=== PATIENT | female | born 1985 | race American Indian/Alaskan Native ===

== ENCOUNTER 2019-07-20 16:59 | Inpatient (IN) | payer MEDICAID ==
[2019-07-20] MEDS ORDERED: LACTATED RINGERS 1,000 ML IV SCH (18:00)
[2019-07-20] MEDS ORDERED: ACETAMINOPHEN 325 MG TAB PO PRN (19:03)
[2019-07-20] MEDS ORDERED: DOCUSATE SODIUM 100 MG CAP PO PRN (19:03)
[2019-07-20] MEDS ORDERED: ONDANSETRON 4 MG/2 ML INJ IV PRN (19:03)
[2019-07-20] MEDS ORDERED: diphenhydrAMINE 25 MG CAP PO PRN (19:03)
[2019-07-20] MEDS ORDERED: SODIUM CHLORIDE NASAL SPRAY 44ML NS PRN (19:03)
[2019-07-20] MEDS ORDERED: SIMETHICONE 80 MG CHEW TAB PO PRN (19:03)
--- NOTE | 2019-07-20 19:15 | History and Physical Report ---
History of Present Illness Date of examination: 07/20/19 Chief complaint: sent from [facility] for evaluation History of present illness: Pt is a 33 year old -[place] female primigravida JUANPABLO 08/18/19 at 35w6d presents from [facility] office for further evaluation of blood pressures 140-150s/80s. She denies headache, blurry vision or RUQ pain. She has had care at [facility] since 12 wks with comanagement by [facility] secondary to morbid obesity, alpha thalassemia carrier status, glucose intolerance, genital herpes without lesion or prodrome, IUGR, low normal CHERELLE. Her GBS status is unknown. Per Dr Bello at [facility] pt had a BPP today that was 8/8 and CHERELLE 7.0 cm. 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 Family/Genetic History: heart disease, hypertension Social history: no significant social history - Obstetrical History Expected Date of Delivery: 08/18/19 Actual Gestation: 35 Week(s) 6 Day(s) : 1 Medications and Allergies Allergies Allergy/AdvReac Type Severity Reaction Status Date / Time No Known Allergies Allergy Verified 07/20/19 17:44 Home Medications Medication Instructions Recorded Confirmed Last Taken Type No Known Home Medications [No 07/20/19 07/20/19 Unknown History Reported Home Medications] Active Meds: Active Medications Acetaminophen (Tylenol) 650 mg PO Q4H PRN PRN Reason: Pain MILD(1-3)/Fever >100.5/HERRERA Betamethasone Acet/Betameth SodPhos (Celestone Soluspan) 12 mg IM Q24HR TAMIA Stop: 07/21/19 10:01 Diphenhydramine HCl (Benadryl) 25 mg PO Q6H PRN PRN Reason: Itching Docusate Sodium (Colace) 100 mg PO Q12H PRN PRN Reason: Constipation Hydralazine HCl (Apresoline) 5 mg IV Q30MIN PRN PRN Reason: Hypertension Lactated Ringer's (Lactated Ringers) 1,000 mls @ 125 mls/hr IV DIRECT TAMIA Last Admin: 07/20/19 18:25 Dose: 125 mls/hr Documented by: Lactated Ringer's (Lactated Ringers) 1,000 mls @ 125 mls/hr IV DIRECT TAMIA Multivitamins/Iron/Calcium ( Vitamin) 1 each PO QDAY TAMIA Ondansetron HCl (Zofran) 4 mg IV Q6H PRN PRN Reason: Nausea And Vomiting Simethicone (Mylicon) 80 mg PO Q6H PRN PRN Reason: Gas pain Sodium Chloride (Deep Sea) 2 spray NS Q4H PRN PRN Reason: Congestion Review of Systems All systems: negative - Vital Signs Vital signs: Vital Signs Temp Pulse Resp BP 98.3 F 90 16 138/75 07/20/19 17:42 07/20/19 17:42 07/20/19 17:42 07/20/19 17:42 Temp Pulse Resp BP Pulse Ox 98.3 F 86 16 132/71 07/20/19 17:42 07/20/19 19:09 07/20/19 17:42 07/20/19 19:09 - Physical Exam Breasts: Positive: deferred Abdomen: Positive: soft (obese, gravid ) Uterus: Positive: enlarged (gravid ) - Obstetrical Uterine Contraction Monitor Mode: External Uterine Contraction Pattern: Absent Results All other labs normal. Assessment and Plan A: IUP at 35w6d Gestational Hypertension IUGR Low Normal CHERELLE Morbid Obesity Genital Herpes without lesion or prodrome Alpha thalassemia carrier status GBS unknown P: Admit to antepartum service Serial BPs 24 hr urine collection Betamethasone course Continuous monitoring Closely monitor clinically
[2019-07-20 19:38] LABS: Bilirubin,Urine NEG (Negative); Blood,Urine NEG (Negative); Color,Urine Yellow (Yellow); Mucus,Urine FEW /HPF; Urobilinogen,Urine < 2.0 mg/dL (<2.0)
[2019-07-20 19:39] LABS: Hematocrit 33.2 % (30.3-42.9); Hemoglobin 10.5 gm/dl (10.1-14.3); Mean Corpuscular HGB Conc 32 % (30-34); Mean Corpuscular Volume 81 fl (79-97); Platelet Count 294 K/mm3 (140-440); Red Blood Count 4.09 M/mm3 (3.65-5.03); Red Cell Distribution Width 15.6 % (13.2-15.2)
[2019-07-20 19:58] LABS: Alanine Aminotransferase 10 units/L (7-56)
[2019-07-20 20:27] LABS: Uric Acid 7.5 mg/dL (3.5-7.6)
[2019-07-20] MEDS ORDERED: guaiFENesin 200 MG TAB PO PRN (21:24)
[2019-07-20] MEDS: LACTATED RINGERS 1,000 ML IV SCH (22:17)
[2019-07-20] MEDS: BETAMET ACET/BETAMET NA PH 6 MG/ML INJ 5 ML MDV IM SCH (22:18)
--- NOTE | 2019-07-21 04:10 | Progress Note ---
Assessment and Plan A: IUP at 36w0d Gestational Hypertension IUGR Low Normal CHERELLE Morbid Obesity Genital Herpes without lesion or prodrome; on Vatrex suppression Alpha thalassemia carrier status GBS unknown P: Admit to antepartum service Serial BPs 24 hr urine collection Betamethasone course; s/p 1 dose of betamethasone Continuous monitoring Closely monitor clinically Subjective - Subjective Date of service: 07/21/19 Principal diagnosis: s/p 36 wks, IUGR, Morbid Obesity, Gestational HTN Interval history: Pt without complaints Patient reports: no new complaints, no loss of fluid, no vaginal bleeding, no contractions Objective - Vital Signs Vital Signs: Vital Signs - 12hr 07/20/19 07/20/19 07/20/19 17:42 18:38 18:55 Temperature 98.3 F Pulse Rate 90 89 92 H Respiratory 16 Rate Blood Pressure 137/71 138/67 Blood Pressure 138/75 [Left] O2 Sat by Pulse Oximetry 07/20/19 07/20/19 07/20/19 19:09 19:23 19:38 Temperature Pulse Rate 86 90 91 H Respiratory Rate Blood Pressure 132/71 129/73 130/71 Blood Pressure [Left] O2 Sat by Pulse Oximetry 07/20/19 07/20/19 07/20/19 19:53 20:08 20:23 Temperature Pulse Rate 88 89 97 H Respiratory Rate Blood Pressure 140/76 137/68 135/80 Blood Pressure [Left] O2 Sat by Pulse Oximetry 07/20/19 07/20/19 07/20/19 20:39 20:54 22:15 Temperature Pulse Rate 120 H 117 H 87 Respiratory Rate Blood Pressure 152/80 152/81 131/75 Blood Pressure [Left] O2 Sat by Pulse Oximetry 07/21/19 07/21/19 07/21/19 00:58 03:32 03:37 Temperature Pulse Rate 85 89 88 Respiratory Rate Blood Pressure 129/75 Blood Pressure [Left] O2 Sat by Pulse 97 97 Oximetry 07/21/19 07/21/19 07/21/19 03:42 03:47 03:52 Temperature Pulse Rate 79 92 H 89 Respiratory Rate Blood Pressure Blood Pressure [Left] O2 Sat by Pulse 98 99 99 Oximetry 07/21/19 03:57 Temperature Pulse Rate 99 H Respiratory Rate Blood Pressure Blood Pressure [Left] O2 Sat by Pulse 98 Oximetry - Exam Breasts: deferred Abdomen: Present: soft (gravid, morbid ) Uterus: Present: normal (gravid ) FHR: auscultation normal Uterine Contraction Monitor Mode: External Uterine Contraction Pattern: Absent Uterine Tone Measurement Phase: Resting Extremities: edema (trace ) - Labs Labs: Abnormal Labs 07/20/19 07/20/19 18:36 Unknown MCH 26 L RDW 15.6 H U Epithel Cells (Auto) 14.0 H Laboratory Results - last 24 hr 07/20/19 07/20/19 07/20/19 18:36 18:36 18:43 WBC 7.2 RBC 4.09 Hgb 10.5 Hct 33.2 MCV 81 MCH 26 L MCHC 32 RDW 15.6 H Plt Count 294 Creatinine 0.7 Estimated GFR > 60 Uric Acid 7.5 AST 17 ALT 10 Lactate Dehydrogenase 152 Urine Color Urine Turbidity Urine pH Ur Specific Clarence Urine Protein Urine Glucose (UA) Urine Ketones Urine Blood Urine Nitrite Urine Bilirubin Urine Urobilinogen Ur Leukocyte Esterase Urine WBC (Auto) Urine RBC (Auto) U Epithel Cells (Auto) Urine Mucus Blood Type AB POSITIVE Antibody Screen Negative 07/20/19 Unknown WBC RBC Hgb Hct MCV MCH MCHC RDW Plt Count Creatinine Estimated GFR Uric Acid AST ALT Lactate Dehydrogenase Urine Color Yellow Urine Turbidity Slightly-cloudy Urine pH 6.0 Ur Specific Clarence 1.026 Urine Protein 100 mg/dl Urine Glucose (UA) Neg Urine Ketones Neg Urine Blood Neg Urine Nitrite Neg Urine Bilirubin Neg Urine Urobilinogen < 2.0 Ur Leukocyte Esterase Tr Urine WBC (Auto) 4.0 Urine RBC (Auto) 1.0 U Epithel Cells (Auto) 14.0 H Urine Mucus Few Blood Type Antibody Screen
[2019-07-21] MEDS: valACYclovir 500 MG TAB PO SCH (10:49)
[2019-07-21] MEDS: PRENATAL VIT27-FE FUMARATE-FOLIC ACID VIT TAB PO SCH (10:49)
--- NOTE | 2019-07-21 14:02 | Ultrasound Report ---
ULTRASOUND OBSTETRIC LIMITED ULTRASOUND BIOPHYSICAL PROFILE INDICATION / CLINICAL INFORMATION: Evaluate well-being. COMPARISON: None available. FINDINGS: BREATHING MOVEMENT = 2 GROSS BODY MOVEMENT = 2 TONE = 2 QUALITATIVE AMNIOTIC FLUID VOLUME = 2 TOTAL BIOPHYSICAL SCORE = 8/8 AMNIOTIC FLUID INDEX (cm) = 9.6 PRESENTATION: Cephalic. HEART RATE (beats per minute): 140 ADDITIONAL FINDINGS: None. IMPRESSION: 1. Biophysical Score = 8/8 2. Normal amniotic fluid index of 9.6 cm. Signer Name: Sumit Shetty MD Signed: 07/21/2019 1:57 PM Workstation Name: [id number]
--- NOTE | 2019-07-21 17:28 | Ultrasound Report ---
ULTRASOUND OBSTETRIC LIMITED ULTRASOUND BIOPHYSICAL PROFILE INDICATION / CLINICAL INFORMATION: Doppler evaluation of umbilical cord. COMPARISON: Limited OB ultrasound from earlier today. FINDINGS: A single live intrauterine is seen with a heart rate of 148 bpm. [facility] 33 weeks, 1 day. The average systolic/diastolic ratio of the umbilical cord is 2.0 with a normal waveform and a persis tent diastolic flow pattern. The average resistive index is 1.1 with a normal waveform and persistent diastolic pattern. IMPRESSION: Unremarkable umbilical cord Doppler. Signer Name: Sumit Shetty MD Signed: 07/21/2019 5:24 PM Workstation Name: [id number]
--- NOTE | 2019-07-21 17:48 | Ultrasound Report ---
ULTRASOUND OBSTETRIC INDICATION: Evaluate well-being. Clinical Gestational Age (GA): 36 weeks TECHNIQUE: Transabdominal. COMPARISON: None available. FINDINGS: There is a single intrauterine . Biparietal Diameter = 7.9 cm = 31 weeks, 5 day(s). Head Circumference = 30.7 cm = 34 weeks, 1 day(s). Abdominal Circumference = 29.2 cm = 33 weeks, 1 day(s). Femur Length = 6.5 cm = 33 weeks, 3 day(s). Average Ultrasound Age (AUA) = 33 weeks, 1 day(s). Heart Rate: 156 beats per minute. Estimated Weight in grams (if calculated): 2142 Position: cephalic. Cervix: closed. Length in cm (if measured): Not measured. Placenta: Not well visualized. Amniotic Fluid Volume: normal Amniotic Fluid Index (CHERELLE) in cm (if calculated): Not calculated. Maternal Adnexa: No significant abnormality. IMPRESSION: 1. Single, living intrauterine with estimated sonographic age of 33 weeks, 1 day(s). 2. No significant sonographic abnormality. Signer Name: Sumit Shetty MD Signed: 07/21/2019 5:44 PM Workstation Name: [id number]
[2019-07-21 19:26] LABS: Creatinine,Urine 67.3 mg/dL (0.1-20.0); Protein/Creatinine Ratio,Urine 1.65
[2019-07-21] MEDS: BETAMET ACET/BETAMET NA PH 6 MG/ML INJ 5 ML MDV IM SCH (21:00)
--- NOTE | 2019-07-21 22:02 | Event Note ---
Date: 07/21/19 Late entry. On-call MD contacted by Dr Ruff from [facility] with recommendation for delivery 24 hrs after second dose of betamethasone if IUGR and greater than 300 mg of protein in 24 hr urine. 24 hr urine protein is 2442 mg. Plan to proceed with induction on 07/22/19 at 2100 pm.
[2019-07-21] MEDS: LACTATED RINGERS 1,000 ML IV SCH (22:04)
[2019-07-22] MEDS: LACTATED RINGERS 1,000 ML IV SCH ×3 (05:56→18:19)
--- NOTE | 2019-07-22 08:36 | Progress Note ---
Assessment and Plan A: IUP at 36w1d Gestational Hypertension IUGR Low Normal CHERELLE Morbid Obesity Genital Herpes without lesion or prodrome; on Vatrex suppression Alpha thalassemia carrier status GBS unknown P: IOL at 9p after 24hrs steroids per MFM Serial BPs s/p 2400 g protein Betamethasone course; s/p 2 doses at 2100 Continuous monitoring NICCU consult Closely monitor clinically Subjective - Subjective Date of service: 07/22/19 Principal diagnosis: s/p 36 wks, IUGR, Morbid Obesity, Gestational HTN Patient reports: no new complaints, no loss of fluid, no vaginal bleeding, no contractions Objective - Vital Signs Vital Signs: Vital Signs - 12hr 07/21/19 07/21/19 07/21/19 21:20 21:55 22:20 Temperature Pulse Rate 99 H 107 H 100 H Respiratory Rate Blood Pressure 173/85 143/88 151/60 Blood Pressure [Left] O2 Sat by Pulse Oximetry 07/21/19 07/22/19 07/22/19 23:20 00:00 00:21 Temperature 98.4 F Pulse Rate 100 H 100 H 96 H Respiratory 16 Rate Blood Pressure 141/78 134/92 Blood Pressure 141/78 [Left] O2 Sat by Pulse Oximetry 07/22/19 07/22/19 07/22/19 00:24 00:29 00:34 Temperature Pulse Rate 102 H 100 H 102 H Respiratory Rate Blood Pressure Blood Pressure [Left] O2 Sat by Pulse 97 99 98 Oximetry 07/22/19 07/22/19 07/22/19 00:39 00:44 00:49 Temperature Pulse Rate 99 H 97 H 99 H Respiratory Rate Blood Pressure Blood Pressure [Left] O2 Sat by Pulse 98 98 99 Oximetry 07/22/19 07/22/19 07/22/19 00:54 00:59 01:04 Temperature Pulse Rate 101 H 95 H 95 H Respiratory Rate Blood Pressure Blood Pressure [Left] O2 Sat by Pulse 98 98 97 Oximetry 07/22/19 07/22/19 07/22/19 01:09 01:14 01:19 Temperature Pulse Rate 95 H 95 H 96 H Respiratory Rate Blood Pressure Blood Pressure [Left] O2 Sat by Pulse 97 97 98 Oximetry 07/22/19 07/22/19 07/22/19 01:20 01:24 01:29 Temperature Pulse Rate 89 94 H 93 H Respiratory Rate Blood Pressure 141/85 Blood Pressure [Left] O2 Sat by Pulse 97 97 Oximetry 07/22/19 07/22/19 07/22/19 01:34 01:39 01:44 Temperature Pulse Rate 95 H 94 H 93 H Respiratory Rate Blood Pressure Blood Pressure [Left] O2 Sat by Pulse 96 97 96 Oximetry 07/22/19 07/22/19 07/22/19 01:49 01:54 01:59 Temperature Pulse Rate 104 H 87 95 H Respiratory Rate Blood Pressure Blood Pressure [Left] O2 Sat by Pulse 96 97 96 Oximetry 07/22/19 07/22/19 07/22/19 02:04 02:09 02:14 Temperature Pulse Rate 96 H 84 86 Respiratory Rate Blood Pressure Blood Pressure [Left] O2 Sat by Pulse 97 97 98 Oximetry 07/22/19 07/22/19 07/22/19 02:19 02:20 02:24 Temperature Pulse Rate 90 83 88 Respiratory Rate Blood Pressure 126/81 Blood Pressure [Left] O2 Sat by Pulse 96 97 Oximetry 07/22/19 07/22/19 07/22/19 02:29 02:34 02:39 Temperature Pulse Rate 90 74 90 Respiratory Rate Blood Pressure Blood Pressure [Left] O2 Sat by Pulse 95 98 95 Oximetry 07/22/19 07/22/19 07/22/19 02:44 02:49 02:51 Temperature Pulse Rate 73 82 93 H Respiratory Rate Blood Pressure Blood Pressure [Left] O2 Sat by Pulse 94 96 94 Oximetry 07/22/19 07/22/19 07/22/19 03:00 03:05 03:10 Temperature Pulse Rate 95 H 80 80 Respiratory Rate Blood Pressure Blood Pressure [Left] O2 Sat by Pulse 99 98 98 Oximetry 07/22/19 07/22/19 07/22/19 03:15 03:20 03:25 Temperature Pulse Rate 86 88 91 H Respiratory Rate Blood Pressure 172/93 Blood Pressure [Left] O2 Sat by Pulse 98 95 97 Oximetry 07/22/19 07/22/19 07/22/19 03:30 03:35 03:40 Temperature Pulse Rate 91 H 89 87 Respiratory Rate Blood Pressure Blood Pressure [Left] O2 Sat by Pulse 96 96 97 Oximetry 07/22/19 07/22/19 07/22/19 03:45 03:50 03:55 Temperature Pulse Rate 91 H 81 96 H Respiratory Rate Blood Pressure Blood Pressure [Left] O2 Sat by Pulse 96 96 97 Oximetry 07/22/19 07/22/19 07/22/19 04:00 04:05 04:10 Temperature 98.8 F Pulse Rate 87 86 83 Respiratory 18 Rate Blood Pressure Blood Pressure 150/80 [Left] O2 Sat by Pulse 96 97 96 Oximetry 07/22/19 07/22/19 07/22/19 04:12 04:15 04:20 Temperature Pulse Rate 96 H 98 H 93 H Respiratory Rate Blood Pressure Blood Pressure [Left] O2 Sat by Pulse 94 97 97 Oximetry 07/22/19 07/22/19 07/22/19 04:22 04:25 04:30 Temperature Pulse Rate 83 83 81 Respiratory Rate Blood Pressure 134/77 Blood Pressure [Left] O2 Sat by Pulse 98 100 Oximetry 07/22/19 07/22/19 07/22/19 04:35 04:40 04:45 Temperature Pulse Rate 87 82 88 Respiratory Rate Blood Pressure Blood Pressure [Left] O2 Sat by Pulse 100 100 100 Oximetry 07/22/19 07/22/19 07/22/19 04:50 04:55 05:00 Temperature Pulse Rate 87 90 86 Respiratory Rate Blood Pressure Blood Pressure [Left] O2 Sat by Pulse 100 100 100 Oximetry 07/22/19 07/22/19 07/22/19 05:05 05:10 05:15 Temperature Pulse Rate 91 H 94 H 75 Respiratory Rate Blood Pressure Blood Pressure [Left] O2 Sat by Pulse 100 99 100 Oximetry 07/22/19 07/22/19 07/22/19 05:20 05:25 05:30 Temperature Pulse Rate 82 75 81 Respiratory Rate Blood Pressure 131/88 Blood Pressure [Left] O2 Sat by Pulse 99 100 100 Oximetry 07/22/19 07/22/19 07/22/19 05:35 05:40 05:59 Temperature Pulse Rate 83 82 77 Respiratory Rate Blood Pressure Blood Pressure [Left] O2 Sat by Pulse 100 100 79 L Oximetry 07/22/19 07/22/19 07/22/19 06:04 06:09 06:14 Temperature Pulse Rate 78 78 73 Respiratory Rate Blood Pressure Blood Pressure [Left] O2 Sat by Pulse 100 100 100 Oximetry 07/22/19 07/22/19 07/22/19 06:19 06:20 06:24 Temperature Pulse Rate 77 77 81 Respiratory Rate Blood Pressure 153/74 Blood Pressure [Left] O2 Sat by Pulse 100 100 Oximetry 07/22/19 07/22/19 07/22/19 06:29 06:34 06:39 Temperature Pulse Rate 83 79 79 Respiratory Rate Blood Pressure Blood Pressure [Left] O2 Sat by Pulse 100 100 100 Oximetry 07/22/19 07/22/19 07/22/19 06:44 06:49 06:54 Temperature Pulse Rate 87 73 85 Respiratory Rate Blood Pressure Blood Pressure [Left] O2 Sat by Pulse 100 100 100 Oximetry 07/22/19 07/22/19 07/22/19 06:59 07:04 07:09 Temperature Pulse Rate 78 89 81 Respiratory Rate Blood Pressure Blood Pressure [Left] O2 Sat by Pulse 100 100 100 Oximetry 07/22/19 07/22/19 07/22/19 07:14 07:17 07:19 Temperature Pulse Rate 78 104 H 92 H Respiratory Rate Blood Pressure Blood Pressure [Left] O2 Sat by Pulse 100 82 L 89 Oximetry 07/22/19 07/22/19 07/22/19 07:20 07:24 07:29 Temperature Pulse Rate 85 84 92 H Respiratory Rate Blood Pressure 149/71 Blood Pressure [Left] O2 Sat by Pulse 100 100 Oximetry 07/22/19 07/22/19 07/22/19 07:34 07:39 07:44 Temperature Pulse Rate 83 90 90 Respiratory Rate Blood Pressure Blood Pressure [Left] O2 Sat by Pulse 100 100 97 Oximetry 07/22/19 07/22/19 07/22/19 07:46 07:49 07:54 Temperature 98.9 F Pulse Rate 85 88 Respiratory 14 Rate Blood Pressure Blood Pressure [Left] O2 Sat by Pulse 100 100 Oximetry 07/22/19 07/22/19 07/22/19 07:59 08:04 08:09 Temperature Pulse Rate 85 85 92 H Respiratory Rate Blood Pressure Blood Pressure [Left] O2 Sat by Pulse 100 100 100 Oximetry 07/22/19 07/22/19 07/22/19 08:10 08:14 08:19 Temperature Pulse Rate 105 H 97 H 94 H Respiratory Rate Blood Pressure Blood Pressure [Left] O2 Sat by Pulse 94 97 98 Oximetry 07/22/19 07/22/19 07/22/19 08:21 08:24 08:29 Temperature Pulse Rate 95 H 107 H 111 H Respiratory Rate Blood Pressure 185/88 Blood Pressure [Left] O2 Sat by Pulse 99 98 Oximetry 07/22/19 08:34 Temperature Pulse Rate 95 H Respiratory Rate Blood Pressure Blood Pressure [Left] O2 Sat by Pulse 98 Oximetry - Exam Breasts: deferred Cardiovascular: Regular rate, Normal S1 Lungs: Clear to auscultation, Normal air movement Abdomen: Present: normal appearance, soft, normal bowel sounds. Absent: dist ention, tenderness, guarding Vulva: both: normal Uterus: Present: normal, firm, fundal height above umbilicus. Absent: bogginess, tenderness FHR: category 1 Uterine Tone Measurement Phase: Resting Extremities: normal Deep Tendon Reflex Grade: Normal +2 - Labs Labs: Abnormal Labs 07/20/19 07/20/19 07/20/19 18:36 Unknown Unknown MCH 26 L RDW 15.6 H U Epithel Cells (Auto) 14.0 H Urine Creatinine 67.3 H Ur Total Protein 24 Hr 2442.00 H Urine Total Protein 111 H Laboratory Results - last 24 hr 07/20/19 Unknown Urine Total Volume 2200 Urine Creatinine 67.3 H Ur Total Protein 24 Hr 2442.00 H Protein/Creatinin Ratio 1.65 Urine Total Protein 111 H
[2019-07-22] MEDS: hydrALAZINE 20 MG/1 ML INJ IV PRN (09:02)
[2019-07-22] MEDS: valACYclovir 500 MG TAB PO SCH (09:56)
[2019-07-22] MEDS: PRENATAL VIT27-FE FUMARATE-FOLIC ACID VIT TAB PO SCH (09:56)
--- NOTE | 2019-07-22 16:50 | Consultation ---
Consult Note - Parent Education I met with parent(s) and discussed the following:: Need for NICU admission, Poss ible need for intubation and surfactant or other resp support, Temperature regulation, Possible need for IV fluids/TPN and IV antibiotics, Importance of providing breast milk & encouraged pumping aft delivery, Slow feeding advancement and monitoring of tolerance. NG/OG feeds, Need to monitor for jaundice Parent(s) demonstrated understanding of all the information:: Yes Assessment and Plan - Assessment Gestation:: 36 Estimated Weight: 2142grams Baby's gender: Male Additional Comment: 33yo mother being induced for elevated BP. Steroids given x2 with inductions scheduled to start tonight at 2100 per [facility] recommendations. 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 All other labs negative. AB positive. EDC 08/18/2019 - Plan Plan: Agree with steroids Will attend delivery Please call NICU with questions
[2019-07-22] MEDS ORDERED: ZOLPIDEM 5 MG TAB PO PRN (20:38)
[2019-07-22] MEDS ORDERED: DINOPROSTONE 10 MG VAG SUPP VG ONE (20:38)
[2019-07-23] MEDS: valACYclovir 500 MG TAB PO SCH (09:00)
[2019-07-23] MEDS: PRENATAL VIT27-FE FUMARATE-FOLIC ACID VIT TAB PO SCH (09:00)
--- NOTE | 2019-07-23 09:22 | Progress Note ---
Assessment and Plan A: IUP at 36w12d Gestational Hypertension IUGR Low Normal CHERELLE Morbid Obesity Genital Herpes without lesion or prodrome; on Vatrex suppression Alpha thalassemia carrier status GBS unknown P: IOL initatiated at 9 p with cervidil per MFM Serial BPs s/p 2400 g protein Betamethasone course; s/p 2 doses at 2100 Continuous monitoring s/p NICCU consult needs amp for GBS unknown Closely monitor clinically Subjective - Subjective Date of service: 07/23/19 Principal diagnosis: s/p 36 wks, IUGR, Morbid Obesity, Gestational HTN Patient reports: no new complaints, no loss of fluid, no vaginal bleeding, no contractions Objective - Vital Signs Vital Signs: Vital Signs - 12hr 07/22/19 07/22/19 07/22/19 21:22 21:27 21:34 Temperature Pulse Rate 83 81 88 Respiratory Rate Blood Pressure 167/78 O2 Sat by Pulse 98 98 99 Oximetry 07/22/19 07/22/19 07/22/19 21:39 21:44 21:49 Temperature Pulse Rate 94 H 94 H 96 H Respiratory Rate Blood Pressure O2 Sat by Pulse 98 98 97 Oximetry 07/22/19 07/22/19 07/22/19 21:51 21:52 21:54 Temperature Pulse Rate 94 H 93 H 95 H Respiratory Rate Blood Pressure 104/56 105/57 O2 Sat by Pulse 97 Oximetry 07/22/19 07/22/19 07/22/19 21:59 22:04 22:09 Temperature Pulse Rate 103 H 102 H 96 H Respiratory Rate Blood Pressure O2 Sat by Pulse 97 98 96 Oximetry 07/22/19 07/22/19 07/22/19 22:14 22:19 22:22 Temperature Pulse Rate 93 H 88 90 Respiratory Rate Blood Pressure 98/51 O2 Sat by Pulse 97 97 Oximetry 07/22/19 07/22/19 07/22/19 22:24 22:29 22:34 Temperature Pulse Rate 82 84 87 Respiratory Rate Blood Pressure 104/55 O2 Sat by Pulse 98 97 96 Oximetry 07/22/19 07/22/19 07/22/19 22:39 22:44 22:49 Temperature Pulse Rate 81 79 77 Respiratory Rate Blood Pressure O2 Sat by Pulse 97 96 97 Oximetry 07/22/19 07/22/19 07/22/19 22:52 22:54 22:59 Temperature Pulse Rate 83 72 76 Respiratory Rate Blood Pressure 108/55 O2 Sat by Pulse 98 97 Oximetry 07/22/19 07/22/19 07/22/19 23:04 23:09 23:14 Temperature Pulse Rate 77 75 88 Respiratory Rate Blood Pressure O2 Sat by Pulse 97 97 98 Oximetry 07/22/19 07/22/19 07/22/19 23:19 23:22 23:24 Temperature Pulse Rate 93 H 92 H 92 H Respiratory Rate Blood Pressure 120/57 O2 Sat by Pulse 98 97 Oximetry 07/22/19 07/22/19 07/22/19 23:29 23:34 23:38 Temperature Pulse Rate 105 H 89 99 H Respiratory Rate Blood Pressure O2 Sat by Pulse 98 97 94 Oximetry 07/22/19 07/22/19 07/22/19 23:39 23:44 23:49 Temperature Pulse Rate 88 95 H 85 Respiratory Rate Blood Pressure O2 Sat by Pulse 97 96 96 Oximetry 07/22/19 07/22/19 07/22/19 23:52 23:54 23:59 Temperature Pulse Rate 92 H 92 H 87 Respiratory Rate Blood Pressure 103/59 O2 Sat by Pulse 96 96 Oximetry 07/23/19 07/23/19 07/23/19 00:04 00:09 00:14 Temperature Pulse Rate 92 H 93 H 94 H Respiratory Rate Blood Pressure O2 Sat by Pulse 96 96 96 Oximetry 07/23/19 07/23/19 07/23/19 00:15 00:19 00:23 Temperature 98.6 F Pulse Rate 92 H 90 Respiratory Rate Blood Pressure 106/54 O2 Sat by Pulse 96 Oximetry 07/23/19 07/23/19 07/23/19 00:24 00:29 00:34 Temperature Pulse Rate 91 H 94 H 88 Respiratory Rate Blood Pressure O2 Sat by Pulse 96 96 96 Oximetry 07/23/19 07/23/19 07/23/19 00:39 00:44 00:49 Temperature Pulse Rate 95 H 92 H 86 Respiratory Rate Blood Pressure O2 Sat by Pulse 96 96 96 Oximetry 07/23/19 07/23/19 07/23/19 00:52 00:54 00:57 Temperature Pulse Rate 90 92 H 95 H Respiratory Rate Blood Pressure 104/55 O2 Sat by Pulse 93 94 94 Oximetry 07/23/19 07/23/19 07/23/19 00:59 01:04 01:09 Temperature Pulse Rate 91 H 72 82 Respiratory Rate Blood Pressure O2 Sat by Pulse 96 98 97 Oximetry 07/23/19 07/23/19 07/23/19 01:14 01:19 01:24 Temperature Pulse Rate 87 81 85 Respiratory Rate Blood Pressure 109/59 O2 Sat by Pulse 97 96 98 Oximetry 07/23/19 07/23/19 07/23/19 01:29 01:33 01:34 Temperature Pulse Rate 81 87 77 Respiratory Rate Blood Pressure O2 Sat by Pulse 98 94 97 Oximetry 07/23/19 07/23/19 07/23/19 01:39 01:44 01:49 Temperature Pulse Rate 100 H 81 94 H Respiratory Rate Blood Pressure O2 Sat by Pulse 96 98 98 Oximetry 07/23/19 07/23/19 07/23/19 01:52 01:54 02:38 Temperature Pulse Rate 95 H 90 83 Respiratory Rate Blood Pressure 133/65 133/73 O2 Sat by Pulse 99 Oximetry 07/23/19 07/23/19 07/23/19 02:53 03:23 03:53 Temperature Pulse Rate 83 79 77 Respiratory Rate Blood Pressure 130/69 128/61 129/68 O2 Sat by Pulse Oximetry 07/23/19 07/23/19 07/23/19 04:23 04:54 05:12 Temperature Pulse Rate 82 74 61 Respiratory Rate Blood Pressure 126/62 132/63 O2 Sat by Pulse 100 Oximetry 07/23/19 07/23/19 07/23/19 05:17 05:22 05:27 Temperature Pulse Rate 76 67 59 L Respiratory Rate Blood Pressure 146/66 O2 Sat by Pulse 100 100 100 Oximetry 07/23/19 07/23/19 07/23/19 05:32 05:37 05:42 Temperature Pulse Rate 102 H 65 59 L Respiratory Rate Blood Pressure O2 Sat by Pulse 100 100 100 Oximetry 07/23/19 07/23/19 07/23/19 05:47 05:49 05:52 Temperature Pulse Rate 83 82 71 Respiratory Rate Blood Pressure O2 Sat by Pulse 100 93 100 Oximetry 07/23/19 07/23/19 07/23/19 05:53 05:57 06:02 Temperature Pulse Rate 63 65 81 Respiratory Rate Blood Pressure 133/74 O2 Sat by Pulse 100 100 Oximetry 07/23/19 07/23/19 07/23/19 06:07 06:12 06:17 Temperature Pulse Rate 64 67 70 Respiratory Rate Blood Pressure O2 Sat by Pulse 100 100 100 Oximetry 07/23/19 07/23/19 07/23/19 06:22 06:27 06:32 Temperature Pulse Rate 72 63 67 Respiratory Rate Blood Pressure 122/67 O2 Sat by Pulse 100 100 100 Oximetry 07/23/19 07/23/19 07/23/19 06:34 06:37 06:42 Temperature Pulse Rate 88 67 67 Respiratory Rate Blood Pressure O2 Sat by Pulse 93 100 100 Oximetry 07/23/19 07/23/19 07/23/19 06:47 06:52 06:57 Temperature Pulse Rate 62 57 L 62 Respiratory Rate Blood Pressure 136/81 O2 Sat by Pulse 100 100 100 Oximetry 07/23/19 07/23/19 07/23/19 07:02 07:07 07:12 Temperature Pulse Rate 74 81 61 Respiratory Rate Blood Pressure O2 Sat by Pulse 100 100 100 Oximetry 07/23/19 07/23/19 07/23/19 07:17 07:22 07:27 Temperature Pulse Rate 68 56 L 68 Respiratory Rate Blood Pressure 122/56 O2 Sat by Pulse 100 100 100 Oximetry 07/23/19 07/23/19 07/23/19 07:30 07:32 07:33 Temperature 98.9 F Pulse Rate 60 65 Respiratory 14 Rate Blood Pressure O2 Sat by Pulse 96 93 Oximetry 07/23/19 07/23/19 07/23/19 07:37 07:38 07:42 Temperature Pulse Rate 67 69 64 Respiratory Rate Blood Pressure O2 Sat by Pulse 91 94 97 Oximetry 07/23/19 07/23/19 07/23/19 07:46 07:47 07:52 Temperature Pulse Rate 91 H 87 62 Respiratory Rate Blood Pressure 140/76 O2 Sat by Pulse 78 L 75 L 100 Oximetry 07/23/19 07/23/19 07/23/19 07:57 08:00 08:02 Temperature Pulse Rate 64 65 57 L Respiratory Rate Blood Pressure O2 Sat by Pulse 96 94 94 Oximetry 07/23/19 07/23/19 07/23/19 08:07 08:09 08:12 Temperature Pulse Rate 64 68 60 Respiratory Rate Blood Pressure O2 Sat by Pulse 94 94 95 Oximetry 07/23/19 07/23/19 07/23/19 08:17 08:22 08:27 Temperature Pulse Rate 72 70 65 Respiratory Rate Blood Pressure 121/87 O2 Sat by Pulse 99 97 100 Oximetry 07/23/19 07/23/19 07/23/19 08:32 08:37 08:38 Temperature Pulse Rate 68 56 L 74 Respiratory Rate Blood Pressure O2 Sat by Pulse 98 98 85 Oximetry 07/23/19 07/23/19 07/23/19 08:42 08:47 08:50 Temperature Pulse Rate 63 57 L 62 Respiratory Rate Blood Pressure O2 Sat by Pulse 97 97 94 Oximetry 07/23/19 07/23/19 07/23/19 08:52 08:57 09:02 Temperature Pulse Rate 55 L 60 83 Respiratory Rate Blood Pressure 132/67 O2 Sat by Pulse 96 98 98 Oximetry 07/23/19 07/23/19 07/23/19 09:07 09:12 09:17 Temperature Pulse Rate 67 66 62 Respiratory Rate Blood Pressure O2 Sat by Pulse 98 96 98 Oximetry - Exam Breasts: normal Cardiovascular: Regular rate, Normal S1 Lungs: Clear to auscultation, Normal air movement Abdomen: Present: normal appearance, soft, normal bowel sounds. Absent: distention, tenderness, guarding Vulva: both: normal Uterus: Present: normal, firm, fundal height above umbilicus. Absent: bogginess, tenderness FHR: category 1 Cervical Dilatation: 1 Uterine Contraction Pattern: Irregular Uterine Tone Measurement Phase: Contraction Uterine Contraction Intensity: Mild Extremities: normal Deep Tendon Reflex Grade: Normal +2 - Labs Labs: Abnormal Labs 07/20/19 07/20/19 07/20/19 18:36 Unknown Unknown MCH 26 L RDW 15.6 H U Epithel Cells (Auto) 14.0 H Urine Creatinine 67.3 H Ur Total Protein 24 Hr 2442.00 H Urine Total Protein 111 H
[2019-07-23] MEDS ORDERED: MINERAL OIL 30 ML ORAL LIQD PO PRN (09:23)
[2019-07-23] MEDS ORDERED: PROMETHAZINE 25 MG TAB PO PRN ×2 (09:23→22:49)
[2019-07-23] MEDS ORDERED: BUTORPHANOL 2 MG/1 ML INJ IV PRN (09:23)
[2019-07-23] MEDS ORDERED: TERBUTALINE 1 MG/1 ML INJ SUB-Q PRN (09:23)
[2019-07-23] MEDS ORDERED: LIDOCAINE (2%) 20 MG/1 ML VIAL 20 ML MDV INFILTRATI ONE (09:23)
[2019-07-23] MEDS ORDERED: ePHEDrine SULFATE 50 MG/1 ML INJ IV PRN (09:23)
[2019-07-23] MEDS ORDERED: NALOXONE 0.4 MG/1 ML INJ IV PRN (09:23)
[2019-07-23] MEDS ORDERED: TERBUTALINE 1 MG/1 ML INJ IVP PRN (09:23)
[2019-07-23] MEDS ORDERED: OXYTOCIN 20 UNIT/1000ML DRIP 20 UNITS/1,000 ML BAG IV SCH (10:00)
[2019-07-23] MEDS ORDERED: OXYTOCIN DRIP 30 UNITS/500 ML BAG IV SCH (10:00)
[2019-07-23 10:14] LABS: Hematocrit 31.8 % (30.3-42.9); Mean Corpuscular HGB Conc 32 % (30-34); Mean Corpuscular Volume 82 fl (79-97); Platelet Count 333 K/mm3 (140-440); Red Cell Distribution Width 15.7 % (13.2-15.2)
[2019-07-23 10:39] LABS: Alanine Aminotransferase 11 units/L (7-56); Uric Acid 7.2 mg/dL (3.5-7.6)
[2019-07-23] MEDS: hydrALAZINE 20 MG/1 ML INJ IV PRN (11:49)
[2019-07-23] MEDS: LACTATED RINGERS 1,000 ML IV SCH ×2 (11:50→12:09)
[2019-07-23] MEDS: AMPICILLIN/NS 1 GM/50 ML 1 GM/50 ML BAG IV SCH ×3 (12:22→21:32)
[2019-07-23] MEDS ORDERED: MAGNESIUM SULFATE 40GM/1000ML 40 GM/1,000 ML BAG IV ONE (12:55)
[2019-07-23] MEDS ORDERED: MAGNESIUM SULFATE 4 GM/100 ML BAG IV ONE (13:00)
[2019-07-23] MEDS ORDERED: MAGNESIUM SULFATE 40GM/1000ML 40 GM/1,000 ML BAG IV SCH (13:00)
[2019-07-23] MEDS: fentaNYL 100 MCG/2 ML INJ IV PRN ×2 (18:18→21:34)
--- NOTE | 2019-07-23 22:48 | Procedure Note ---
OB Delivery Note - Delivery Date of Delivery: 07/23/19 Surgeon: NU HAMPTON Estimated blood loss: 300cc - Vaginal Delivery presentation: vertex Delivery position: OA Intrapartum events: labor-<37 weeks, precipitous labor- <3hr Delivery induction: oxytocin Delivery monitor: external FHT, external uterine Route of delivery: Delivery placenta: spontaneous Episiotomy: none Delivery laceration: none Anesthesia: none Delivery comments: Patient noted to be and delivered with one push at 1021. [facility] team in attendance. The cord was clamped and cut at 1033. Apgars 3 and 8 The placenta delivered intact with three vessel cord. No lacs noted. Baby in [facility] for prematurity. Mom doing well. EBL 300 cc. - A Infant Gender: Male (4 pounds 10 oz)
[2019-07-23] MEDS ORDERED: WITCH HAZEL/ GLYCERIN PAD TP PRN (22:49)
[2019-07-23] MEDS ORDERED: MAGNESIUM HYDROXIDE (MOM) ORAL LIQD UDC PO PRN (22:49)
[2019-07-23] MEDS ORDERED: KETOROLAC 30 MG/1 ML INJ IV PRN (22:49)
[2019-07-23] MEDS ORDERED: ONDANSETRON 4 MG/2 ML INJ IV PRN (22:49)
[2019-07-23] MEDS ORDERED: oxyCODONE /ACETAMINOPHEN 5-325MG TAB PO PRN (22:49)
[2019-07-23] MEDS ORDERED: HYDROcodone/ACETAMINOPHEN 5-325 MG TAB PO PRN (22:49)
[2019-07-23] MEDS ORDERED: ACETAMINOPHEN 325 MG TAB PO PRN (22:49)
[2019-07-23] MEDS ORDERED: diphenhydrAMINE 25 MG CAP PO PRN (22:49)
[2019-07-23] MEDS ORDERED: LANOLIN/ZINC/DIMETHICONE (LANSINOH) 7 GM TP PRN (22:49)
[2019-07-23] MEDS ORDERED: PROMETHAZINE 25 MG RECT SUPP PR PRN (22:49)
[2019-07-23] MEDS ORDERED: IBUPROFEN 600 MG TAB PO SCH (23:00)
[2019-07-23] MEDS: OXYTOCIN 20 UNIT/1000ML DRIP 20 UNITS/1,000 ML BAG IV SCH (23:50)
[2019-07-24] MEDS: OXYTOCIN 20 UNIT/1000ML DRIP 20 UNITS/1,000 ML BAG IV SCH (00:04)
[2019-07-24] MEDS ORDERED: TETANUS,DIPH,PERTUSS(ACELL) VACCINE 0.5 ML SYRINGE IM ONE (06:00)
[2019-07-24] MEDS ORDERED: MEASLES, MUMPS & RUBELLA 12,500 UNIT/0.5 ML VACCINE SUB-Q ONE (06:00)
--- NOTE | 2019-07-24 09:38 | Progress Note ---
Assessment and Plan A: PPD1 Gestational Hypertension IUGR Morbid Obesity Genital Herpes without lesion or prodrome; on Vatrex suppression Alpha thalassemia carrier status P: Routine PP care Continue mag until tonight close monitor of BP Subjective - Subjective Date of service: 07/24/19 Principal diagnosis: s/p 36 wks, IUGR, Morbid Obesity, Gestational HTN Patient reports: appetite normal, voiding normally, pain well controlled [place]: doing well, in NICU Objective - Vital Signs Latest vital signs: Vital Signs Temp Pulse Resp BP BP Pulse Ox 07/24/19 08:02 91 H 99 07/24/19 07:57 75 97 07/24/19 07:52 65 153/90 97 07/24/19 07:47 67 97 07/24/19 07:42 75 98 07/24/19 07:36 77 97 07/24/19 07:31 86 98 07/24/19 07:26 84 98 07/24/19 07:22 75 147/88 07/24/19 07:21 89 97 07/24/19 07:16 87 97 07/24/19 07:11 93 H 96 07/24/19 07:06 91 H 97 07/24/19 07:01 79 97 07/24/19 06:56 81 96 07/24/19 06:52 71 147/81 94 07/24/19 06:51 76 96 07/24/19 06:46 81 96 07/24/19 06:41 69 97 07/24/19 06:36 75 97 07/24/19 06:31 74 98 07/24/19 06:26 79 95 07/24/19 06:22 67 158/91 92 07/24/19 06:21 71 97 07/24/19 06:16 69 96 07/24/19 06:11 72 97 07/24/19 06:06 81 96 07/24/19 06:01 70 99 07/24/19 05:57 73 94 07/24/19 05:56 74 96 07/24/19 05:52 73 162/87 93 07/24/19 05:51 74 97 07/24/19 05:46 75 96 07/24/19 05:41 73 95 07/24/19 05:36 76 96 07/24/19 05:31 78 96 07/24/19 05:26 69 96 07/24/19 05:22 75 159/80 93 07/24/19 05:21 64 97 07/24/19 05:16 72 97 07/24/19 05:11 68 98 07/24/19 05:06 72 99 07/24/19 05:01 81 98 07/24/19 04:56 78 97 07/24/19 04:52 78 155/79 07/24/19 04:51 72 99 07/24/19 04:46 75 97 07/24/19 04:41 85 180/85 96 07/24/19 04:36 73 98 07/24/19 04:31 74 99 07/24/19 04:26 82 100 07/24/19 04:21 83 100 07/24/19 04:16 79 99 07/24/19 04:11 83 100 07/24/19 04:06 91 H 99 07/24/19 04:01 92 H 100 07/24/19 03:59 53 L 64 L 07/24/19 03:56 99 H 100 07/24/19 03:52 93 H 160/81 07/24/19 03:51 84 99 07/24/19 03:46 84 99 07/24/19 03:41 89 99 07/24/19 03:36 91 H 98 07/24/19 03:31 88 99 07/24/19 03:26 95 H 98 07/24/19 03:22 85 173/88 07/24/19 03:21 82 99 07/24/19 03:16 84 98 07/24/19 03:11 86 99 07/24/19 03:06 84 100 07/24/19 03:01 89 100 07/24/19 01:56 85 100 07/24/19 01:52 88 169/92 07/24/19 01:51 87 100 07/24/19 01:46 92 H 100 07/24/19 01:41 93 H 100 07/24/19 01:36 87 100 07/24/19 01:31 94 H 100 07/24/19 01:26 86 100 07/24/19 01:22 90 140/64 07/24/19 01:21 99 H 99 07/24/19 01:16 85 97 07/24/19 01:11 88 98 07/24/19 01:06 100 H 99 07/24/19 01:01 97 H 99 07/24/19 00:56 96 H 99 07/24/19 00:52 98 H 149/80 07/24/19 00:51 96 H 99 07/24/19 00:46 101 H 98 07/24/19 00:45 96 H 93 07/24/19 00:41 91 H 100 07/24/19 00:36 91 H 98 07/24/19 00:31 93 H 98 07/24/19 00:26 81 99 07/24/19 00:22 91 H 164/87 07/24/19 00:21 97 H 100 07/24/19 00:16 100 H 98 07/24/19 00:11 97 H 99 07/24/19 00:06 79 99 07/24/19 00:01 93 H 99 07/23/19 23:56 90 99 07/23/19 23:52 97 H 168/104 07/23/19 23:51 103 H 98 07/23/19 23:49 100 H 94 07/23/19 23:46 84 99 07/23/19 23:41 95 H 100 07/23/19 23:36 78 97 07/23/19 23:31 87 99 07/23/19 23:26 97 H 98 07/23/19 23:22 93 H 163/90 07/23/19 23:21 99 H 99 07/23/19 23:16 95 H 99 07/23/19 23:11 98 H 99 07/23/19 23:06 102 H 100 07/23/19 23:01 108 H 168/109 94 07/23/19 22:17 86 98 07/23/19 21:43 97 H 84 07/23/19 21:40 53 L 86 07/23/19 21:36 79 97 07/23/19 21:31 89 98 07/23/19 21:26 90 99 07/23/19 21:22 166 H 129/90 07/23/19 21:21 95 H 97 07/23/19 21:16 80 96 07/23/19 21:11 84 98 07/23/19 21:06 80 100 07/23/19 21:01 77 100 07/23/19 20:56 81 99 07/23/19 20:52 85 149/74 07/23/19 20:51 77 99 07/23/19 20:46 78 99 07/23/19 20:41 88 98 07/23/19 20:36 72 100 07/23/19 20:31 76 98 07/23/19 20:26 78 98 07/23/19 20:22 75 147/84 07/23/19 20:21 79 97 07/23/19 20:17 82 93 07/23/19 20:16 79 99 07/23/19 20:11 80 97 07/23/19 20:06 87 98 07/23/19 20:01 77 98 07/23/19 19:56 87 98 07/23/19 19:52 76 148/81 07/23/19 19:51 80 98 07/23/19 19:46 76 99 07/23/19 19:41 75 99 07/23/19 19:38 78 80 L 07/23/19 19:36 70 98 07/23/19 19:32 98.2 F 76 18 137/82 07/23/19 19:31 75 99 07/23/19 19:26 77 98 07/23/19 19:22 71 137/82 07/23/19 19:21 74 99 07/23/19 19:16 79 97 07/23/19 19:11 72 98 07/23/19 19:06 74 96 07/23/19 19:01 72 96 07/23/19 18:56 68 97 07/23/19 18:53 74 128/66 07/23/19 18:51 75 95 07/23/19 18:46 71 96 07/23/19 18:44 68 94 07/23/19 18:41 76 95 07/23/19 18:39 76 94 07/23/19 18:36 73 95 07/23/19 18:32 80 94 07/23/19 18:31 74 94 20 18:27 83 94 07/23/19 18:26 74 95 20 18:22 83 134/69 07/23/19 18:21 82 94 07/23/19 18:18 14 07/23/19 18:16 81 95 07/23/19 18:14 77 94 07/23/19 18:11 80 95 07/23/19 18:06 86 99 07/23/19 18:01 87 97 07/23/19 17:56 76 96 0307/20 17:53 81 144/70 20 17:51 79 96 07/23/19 17:46 87 98 07/23/19 17:41 90 96 07/23/19 17:36 87 98 07/23/19 17:31 82 97 07/23/19 17:26 82 97 07/23/19 17:22 74 139/74 20 17:21 80 98 07/23/19 17:16 84 98 07/23/19 17:11 81 96 07/23/19 17:06 74 96 07/23/19 17:01 68 97 07/23/19 16:56 73 100 07/23/19 16:52 69 144/76 07/23/19 16:51 72 97 07/23/19 16:46 89 97 07/23/19 16:41 72 98 07/23/19 16:36 79 98 07/23/19 16:31 86 97 07/23/19 16:26 78 98 07/23/19 16:23 82 142/77 07/23/19 16:21 79 99 07/23/19 16:16 89 97 07/23/19 16:11 85 98 07/23/19 16:06 88 98 07/23/19 16:01 85 99 07/23/19 15:56 78 99 07/23/19 15:53 86 140/78 07/23/19 15:51 81 98 07/23/19 15:46 81 98 07/23/19 15:41 82 98 07/23/19 15:36 78 98 07/23/19 15:31 86 98 07/23/19 15:26 78 97 0320 15:22 80 140/75 0320 15:21 77 97 07 15:16 82 97 07/23/19 15:11 86 97 07/23/19 15:06 91 H 97 07/23/19 15:01 78 99 07/23/19 14:56 84 99 07/23/19 14:52 82 136/71 07/23/19 14:51 79 100 07/23/19 14:46 77 98 07/23/19 14:41 79 98 07/23/19 14:36 73 99 07/23/19 14:31 83 97 07/23/19 14:28 84 132/68 93 07/23/19 14:26 82 99 07/23/19 14:21 91 H 99 07/23/19 14:16 85 99 07/23/19 14:11 82 98 07/23/19 14:06 85 98 07/23/19 14:01 89 97 07/23/19 13:56 84 97 07/23/19 13:52 86 129/68 07/23/19 13:51 91 H 97 07/23/19 13:46 84 97 07/23/19 13:41 86 97 07/23/19 13:38 98.0 F 07/23/19 13:36 86 97 07/23/19 13:31 92 H 98 07/23/19 13:26 78 98 07/23/19 13:22 89 126/65 07/23/19 13:21 82 97 07/23/19 13:16 81 98 07/23/19 13:11 75 99 07/23/19 13:06 75 100 07/23/19 13:01 72 100 07/23/19 12:56 70 100 07/23/19 12:52 76 133/75 07/23/19 12:51 76 99 07/23/19 12:46 70 100 07/23/19 12:41 76 100 07/23/19 12:36 65 99 07/23/19 12:31 64 100 07/23/19 12:26 72 99 07/23/19 12:22 59 L 133/67 07/23/19 12:21 61 100 07/23/19 12:16 61 99 07/23/19 12:11 65 99 07/23/19 12:06 74 99 07/23/19 12:01 69 99 07/23/19 11:56 59 L 98 07/23/19 11:53 70 128/68 07/23/19 11:51 57 L 97 07/23/19 11:46 55 L 97 07/23/19 11:42 54 L 94 07/23/19 11:41 64 97 07/23/19 11:36 59 L 99 07/23/19 11:31 62 98 07/23/19 11:27 74 169/110 07/23/19 11:26 76 164/77 98 07/23/19 11:25 67 92 07/23/19 11:23 64 173/78 07/23/19 11:21 64 99 07/23/19 11:20 74 90 07/23/19 09:37 66 94 07/23/19 09:32 60 99 07/23/19 09:27 66 97 07/23/19 09:22 57 L 137/62 96 07/23/19 09:17 62 98 07/23/19 09:12 66 96 07/23/19 09:07 67 98 07/23/19 09:02 83 98 07/23/19 08:57 60 98 07/23/19 08:52 55 L 132/67 96 07/23/19 08:50 62 94 07/23/19 08:47 57 L 97 07/23/19 08:42 63 97 07/23/19 08:38 74 85 07/23/19 08:37 56 L 98 Intake and Output 07/23/19 07/24/19 07/24/19 22:59 07:59 15:59 Intake Total Output Total Balance Intake: IV AMPICILLIN/NS 1 GM/50 ML 1 gm In 50 ml @ 100 mls/ hr IV Q4H TAMIA Rx#: [id number] PITOCin/NS 20 UNIT/1000ML DRIP 20 units In 1,000 ml @ 250 mls/hr IV DIRECT TAMIA Rx#:[id number] PITOCin/NS 30 UNIT/500ML 30 units In 500 ml @ 1 MILLIUNITS/MIN 1 mls/hr IV TITR TAMIA Rx#:[id number] Output: Urine Void Other: Total, Output Amount Estimated Blood Loss - Exam Breasts: Present: deferred Cardiovascular: Present: Regular rate, Normal S1 Lungs: Present: Clear to auscultation, Normal air movement Abdomen: Present: normal appearance, soft, normal bowel sounds. Absent: distention, tenderness, guarding Uterus: Present: normal, firm, fundal height below umbilicus. Absent: bogginess, tenderness Extremities: Present: normal Deep Tendon Reflex Grade: Normal +2 Incision: Present: normal, dry, intact - Labs Labs: Abnormal lab results 07/23/19 07/23/19 07/23/19 Range/Units 09:48 09:54 13:50 WBC 16.4 H (4.5-11.0) K/mm3 Hgb 10.0 L (10.1-14.3) gm/dl MCH 26 L (28-32) pg RDW 15.7 H (13.2-15.2) % Magnesium 3.70 H (1.7-2.3) mg/dL Lactate Dehydrogenase 199 H (91-180) units/L 07/23/19 07/24/19 Range/Units 20:15 04:17 WBC (4.5-11.0) K/mm3 Hgb (10.1-14.3) gm/dl MCH (28-32) pg RDW (13.2-15.2) % Magnesium 5.60 H 5.20 H (1.7-2.3) mg/dL Lactate Dehydrogenase (91-180) units/L
[2019-07-24 10:32] LABS: Hematocrit 31.1 % (30.3-42.9); Hemoglobin 9.8 gm/dl (10.1-14.3)
[2019-07-24] MEDS: LACTATED RINGERS 1,000 ML IV SCH (11:08)
--- NOTE | 2019-07-25 08:27 | Progress Note ---
Assessment and Plan A: PPD#2 s/p at 36 wks secondary to preeclampsia, IUGR, low CHERELLE, morbid obesity P: Routine care. Discharge today with follow up in 1 week for blood pressure check. Subjective - Subjective Date of service: 07/25/19 Principal diagnosis: s/p at 36 wks, IUGR, Preeclampsia Interval history: Pt without complaints. No PIH symptoms. Patient reports: appetite normal, voiding normally, pain well controlled, ambulating normally [place]: in NICU Objective - Vital Signs Latest vital signs: Vital Signs Temp Pulse Resp BP BP Pulse Ox 07/25/19 05:26 97.8 F 70 18 98/52 96 07/24/19 23:25 127/85 07/24/19 23:23 98.0 F 73 18 148/92 99 07/24/19 23:02 78 166/91 07/24/19 22:46 78 166/91 07/24/19 22:39 71 169/95 07/24/19 22:37 70 180/97 07/24/19 22:17 66 156/87 07/24/19 21:46 60 136/90 07/24/19 21:45 18 07/24/19 21:16 66 147/80 07/24/19 20:45 18 07/24/19 20:44 98.8 F 66 18 145/81 07/24/19 20:43 66 145/81 07/24/19 20:31 98.0 F 16 07/24/19 19:45 18 07/24/19 18:30 83 145/84 07/24/19 14:06 99 H 118/64 07/24/19 13:35 113 H 98 07/24/19 13:30 102 H 98 07/24/19 13:29 93 H 137/60 07/24/19 13:27 100 H 140/66 07/24/19 13:25 103 H 134/67 97 07/24/19 13:23 96 H 125/56 07/24/19 13:20 87 97 07/24/19 13:15 94 H 97 07/24/19 13:14 100 H 95/43 07/24/19 13:12 97 H 102/48 07/24/19 13:10 98 H 96 07/24/19 13:05 104 H 99 07/24/19 12:15 98.3 F 18 07/24/19 11:08 84 96 07/24/19 11:03 90 95 07/24/19 11:02 86 144/79 Intake and Output 07/24/19 07/25/19 07/25/19 22:59 06:59 14:59 Intake Total 360 Output Total 500 Balance -140 Intake: Intake, Free Water 360 Output: Urine 500 Void 500 Other: Total, Output Amount 500 # Voids Void 1 - Exam Breasts: Present: deferred Cardiovascular: Present: Regular rate Lungs: Present: Clear to auscultation Abdomen: Present: soft (obese ) Uterus: Present: fundal height below umbilicus Extremities: Present: edema (trace) - Labs Labs: Abnormal lab results 07/24/19 07/24/19 07/24/19 Range/Units 10:00 10:00 20:05 Hgb 9.8 L (10.1-14.3) gm/dl Magnesium 5.20 H 4.30 H (1.7-2.3) mg/dL
--- NOTE | 2019-07-25 08:31 | Discharge Summary ---
Providers - Providers Date of Admission: 07/22/19 14:04 Date of discharge: 07/25/19 Attending physician: GABE REDMAN 07/22/19 08:33 Consult to Physician [CONS] Urgent Comment: Consulting Provider: THALIA HERNANDEZ Physician Instructions: Reason For Exam: Gest HTN 36 weeks IOL tonight Primary care physician: GABE REDMAN Hospitalization Reason for admission: other (elevated blood pressure ) Delivery: Procedure details: Please see delivery note Episiotomy: none Laceration: none Other procedures: other (Magnesium sulfate x 24 hrs) complications: none Discharge diagnosis: delivery [place] baby: male Hospital course: The patient was initially admitted for elevated blood pressures at 36 weeks. A 24-hour urine protein revealed over 2000 mg of protein indicating preeclampsia in the setting of either intrauterine growth restriction and low normal CHERELLE. After [facility] recommendation to proceed with delivery, the patient underwent induction and ultimately had a spontaneous vaginal delivery which she tolerated well. She received magnesium sulfate for seizure prophylaxis for 24 hours after the delivery. She was also started on labetalol 100 mg twice daily. The remainder of her course was uncomplicated and she met discharge criteria on day #2. She will follow-up in the office in 1 week for a blood pressure check. Condition at discharge: Stable Disposition: DC-01 TO HOME OR SELFCARE - Discharge Diagnoses (1) delivery Status: Acute (2) Morbid obesity Status: Acute (3) IUGR (intrauterine growth restriction) Status: Acute (4) Preeclampsia Status: Acute Qualifiers: Trimester: third trimester Qualified Code(s): O14.93 - Unspecified pre- eclampsia, third trimester (5) Anemia Status: Acute Qualifiers: Anemia type: unspecified type Qualified Code(s): D64.9 - Anemia, unspecified Plan - Discharge Medications Prescriptions: Ferrous Sulfate [Feosol 325 MG tab] 325 mg PO BID #60 tablet labetaloL [Labetalol 100mg TAB] 100 mg PO BID #60 tablet Ibuprofen [Motrin] 800 mg PO Q8HR PRN #30 tablet PRN Reason: Pain, Moderate (4-6) - Provider Discharge Summary Activity: routine, no sex for 6 weeks, no heavy lifting 4 weeks, no strenuous exercise Diet: routine Instructions: routine Additional instructions: [] Smoking cessation referral if applicable(refer to patient education folder for contact #) [] Refer to [employer] Booklet Call your doctor immediately for: * Fever > 100.5 * Heavy vaginal bleeding ( >1 pad per hour) * Severe persistent headache * Shortness of breath * Reddened, hot, painful area to leg or breast * Drainage or odor from incision. * Keep incision clean and dry at all times and follow doctor's instructions regarding bathing/showering - Follow up plan Follow up: GABE REDMAN MD [Primary Care Provider] - 7 Days (please call to schedule an appt for blood pressure check )
[2019-07-25] MEDS: PRENATAL VIT27-FE FUMARATE-FOLIC ACID VIT TAB PO SCH (10:26)
[2019-07-25 13:24] VITALS: BP 107/62
== END 2019-07-25 16:15 | disposition home or self-care (01) | DRG 774 ==
LOC: TRG 16:59 → LD 16:59 → TRG 17:00 → LD 07-21 09:15 → OBSVTOIN 07-22 14:04 → OB 07-24 23:21
PROVIDERS: ADMIT Obstetrics & Gynecology; ATTEND Obstetrics & Gynecology
PROC: 10E0XZZ Delivery of Products of Conception, External Approach (ICD-10-PCS; principal; 2019-07-23)
PROC: 3E033VJ Introduction of Other Hormone into Peripheral Vein, Percutaneous Approach (ICD-10-PCS; 2019-07-23)
PROC: 3E0234Z Introduction of Serum, Toxoid and Vaccine into Muscle, Percutaneous Approach (ICD-10-PCS; 2019-07-24)
PROC: 3E0134Z Introduction of Serum, Toxoid and Vaccine into Subcutaneous Tissue, Percutaneous Approach (ICD-10-PCS; 2019-07-24)
DX: O60.14X0 Preterm labor third trimester with preterm delivery third trimester, not applicable or unspecified (principal); O98.52 Other viral diseases complicating childbirth; O99.214 Obesity complicating childbirth; E66.01 Morbid (severe) obesity due to excess calories; O13.4 Gestational [pregnancy-induced] hypertension without significant proteinuria, complicating childbirth; O36.5930 Maternal care for other known or suspected poor fetal growth, third trimester, not applicable or unspecified; O14.94 Unspecified pre-eclampsia, complicating childbirth; B00.9 Herpesviral infection, unspecified; O75.89 Other specified complications of labor and delivery; O99.03 Anemia complicating the puerperium; D64.9 Anemia, unspecified; D56.3 Thalassemia minor; Z3A.35 35 weeks gestation of pregnancy; Z37.0 Single live birth; Z23 Encounter for immunization; Z82.49 Family history of ischemic heart disease and other diseases of the circulatory system; Z90.49 Acquired absence of other specified parts of digestive tract
CPT/HCPCS: 36415; 59200; 76815; 76816; 76819; 76820; 81001; 82565; 82570; 83615; 83735; 84156; 84450; 84460; 84550; 85014; 85018; 85027; 86850; 86900; 86901; 88307; G0378; J0290; J0360; J0702; J2590; J3010; J3475; J7120

== ENCOUNTER 2021-03-13 22:34 | Emergency (ER) | payer MEDICAID ==
[2021-03-13 22:42] VITALS: BP 181/108
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
[2021-03-13] MEDS ORDERED: HYDROcodone/ACETAMINOPHEN 5-325 MG TAB PO STA (23:36)
[2021-03-14] MEDS ORDERED: ONDANSETRON 4 MG ODT TAB PO ONE (01:48)
--- NOTE | 2021-03-14 02:03 | XRay Report ---
Lumbar spine 3 views INDICATION: Back pain FINDINGS: Alignment appears normal. No compression fractures seen. Calcification the right upper abdo men could represent a gallstone however nonspecific IMPRESSION: No acute lumbar spine injury Signer Name: Jhony Roper MD Signed: 03/14/2021 1:59 AM Workstation Name: [id number]
--- NOTE | 2021-03-14 02:34 | XRay Report ---
Cervical spine 4 views INDICATION: Neck pain FINDINGS: Alignment appears normal. No prevertebral soft tissue swelling. Odontoid appears intact. No acute findings. Signer Name: Jhony Roper MD Signed: 03/14/2021 2:30 AM Workstation Name: [id number]
== END 2021-03-14 07:34 | disposition home or self-care (01) ==
LOC: ED 22:34
DX: S16.1XXA Strain of muscle, fascia and tendon at neck level, initial encounter (principal); M62.830 Muscle spasm of back; V89.2XXA Person injured in unspecified motor-vehicle accident, traffic, initial encounter; Y93.89 Activity, other specified; Y92.488 Other paved roadways as the place of occurrence of the external cause; Y99.8 Other external cause status
CPT/HCPCS: 36415; 72040; 72100; 84703; 99284; Q0162